=== PATIENT | female | born 1965 | race Caucasian/White ===

== ENCOUNTER 2016-03-16 12:33 | Emergency (ER) | payer OTHER ==
[2016-03-16 12:59] VITALS: RESP 18; O2SAT 97
[2016-03-16] MEDS ORDERED: LIDOCAINE BUFFERED 1% 50 ML SOL SC ONE (13:10)
[2016-03-16] MEDS ORDERED: LIDOCAINE HCL 1% MPF SOL ONE (13:11)
[2016-03-16] MEDS ORDERED: BACITRACIN 500 U/GM OIN TOP ONE ×2 (13:36→13:37)
[2016-03-16 14:01] VITALS: BP 152/94; PULSE 78; TEMP 99
== END 2016-03-16 13:55 | disposition home or self-care (01) | DRG 605 ==
LOC: ED 12:33
DX: S61.217A Laceration without foreign body of left little finger without damage to nail, initial encounter (principal); W26.0XXA Contact with knife, initial encounter; Y93.G1 Activity, food preparation and clean up
CPT/HCPCS: 12001; 99283